=== PATIENT | male | born 1935 | race Caucasian/White ===

== ENCOUNTER 2017-02-11 09:00 | Emergency (ER) | payer MEDICARE, BC ==
[~2017-02-11] VITALS: Ht 182.9 cm; Wt 97.1 kg
--- NOTE | 2017-02-11 09:07 | NUR ---
BIBRA FROM HOME FOR EVAL-- SP FALL THIS MORNING, NO KO. PATIENT IS AAO4. APPEARS IN NO APPARENT DISTRESS,. RESPIRATION EVEN AND UNLABORED. PATIENT NOTED WITH OPEN WOUND ON FORHEAD, NOSE BRIDGE AND BUE. MINIMAL BLEEDING NOTED. PRESSURE APPLIED. PT IS AFEBRILE. NO OBVIOUS SIGN OF FRACTURE NOTED. WILL CONT TO MONITOR
[2017-02-11] MEDS ORDERED: TDAP [DIPH/PERTUSSIS/TET] 0.5 ML VIAL IM ONE ×2 (09:10→09:30)
--- NOTE | 2017-02-11 09:10 | NUR ---
MD ELLINGTON AT BS
--- NOTE | 2017-02-11 09:33 | NUR ---
pt was taken to ct
--- NOTE | 2017-02-11 09:54 | NUR ---
Pt is back to ct
--- NOTE | 2017-02-11 10:14 | NUR ---
patient complaint of neck pain, 6/10, non radiating. Md Bains aware. Cervicall collar will be placed
[2017-02-11] MEDS ORDERED: GLIM4TAB2 PO (10:19)
[2017-02-11] MEDS ORDERED: SERT50TA PO (10:19)
[2017-02-11] MEDS ORDERED: CARV12.52 PO (10:19)
[2017-02-11] MEDS ORDERED: LOVA20TA2 PO (10:19)
[2017-02-11] MEDS ORDERED: LINA5TAB PO (10:19)
[2017-02-11] MEDS ORDERED: AMLO10TA2 PO (10:19)
--- NOTE | 2017-02-11 10:21 | NUR ---
pt is back to ct--accompanied by MD Ewing
[2017-02-11 11:25] LABS: BASOPHILS # (AUTO) 0.4 /CMM (0.0-0.2); BASOPHILS % (AUTO) 2.5 % (0.0-2.0); EOSINOPHILS # (AUTO) 0.2 /CMM (0.0-0.7); EOSINOPHILS % (AUTO) 1.2 % (0.0-6.0); HEMATOCRIT 43 % (39-51); HEMOGLOBIN 14.7 g/dL (13.5-17.5); LYMPHOCYTES # (AUTO) 0.8 /CMM (0.8-4.8); LYMPHOCYTES % (AUTO) 5.1 % (20.0-44.0); MEAN CORPUSCULAR HEMOGLOBIN 31 PG (26.0-33.0); MEAN CORPUSCULAR HGB CONC 34 g/dl (31.0-36.0); MEAN CORPUSCULAR VOLUME 90 fL (80-96); MONOCYTES # (AUTO) 0.7 /CMM (0.1-1.30); MONOCYTES % (AUTO) 4.5 % (2.0-12.0); NEUTROPHILS # (AUTO) 13.4 /CMM (1.8-8.9); NEUTROPHILS % (AUTO) 86.7 % (43.0-81.0); PLATELET COUNT (AUTO) 179 /CMM (150-450); RDW COEFFICIENT OF VARIATION 13.6 (11.5-15.0); RED BLOOD CELL COUNT(AUTO) 4.75 MIL/uL (4.5-6.0); WHITE BLOOD COUNT (AUTO) 15.5 K/uL (4.3-11.0)
--- NOTE | 2017-02-11 11:25 | NUR ---
CALLED TRANSPORT PLACED ON WILL-CALL
[2017-02-11 11:35] LABS: CALCIUM, SERUM 8.6 mg/dL (8.5-10.1); CARBON DIOXIDE 23 mmol/L (21-32); CHLORIDE 103 mmol/L (98-107); GLUCOSE 213 mg/dL (74-106); POTASSIUM 4.6 mmol/L (3.5-5.1); SODIUM SERUM 135 mmol/L (136-145); UREA NITROGEN, BLOOD 51 mg/dL (7-18)
[2017-02-11 11:38] LABS: INR 1.08 (0.87-1.13); PROTHROMBIN TIME 11.2 SECS (9.5-12.7)
[2017-02-11 11:41] LABS: ALANINE AMINOTRANSFERASE 26 U/L (12-78); ALBUMIN 3.6 g/dL (3.4-5.0); ALKALINE PHOSPHATASE 92 U/L (46-116); ASPARTATE AMINOTRANSFERASE 23 U/L (15-37); BILIRUBIN,DIRECT 0.2 mg/dL (0.0-0.2); BILIRUBIN,TOTAL 1.1 mg/dL (0.2-1.0); TOTAL PROTEIN, SERUM 7.2 g/dL (6.4-8.2)
[2017-02-11 11:43] LABS: TROPONIN I < 0.017 ng/mL (0.00-0.056)
[2017-02-11 12:25] LABS: EOSINOPHILS % (MANUAL) 2 % (0-4); LYMPHOCYTES % (MANUAL) 4 % (16-48); MONOCYTES % (MANUAL) 2 % (0-11.0); NEUTROPHILS % (MANUAL) 90 (42-76); REACTIVE LYMPHOCYTES 2 % (0-0)
--- NOTE | 2017-02-11 13:29 | NUR ---
ON THE PHONE WITH BOY FROM [facility]. ETA OF 1HR WAS GIVEN.
--- NOTE | 2017-02-11 13:46 | NUR ---
report given to rn from [facility] for continuity of care
--- NOTE | 2017-02-11 14:50 | NUR ---
patient transported to [facility]. C spine precaution observed
[2017-02-11 14:53] VITALS: BP 155/80
== END 2017-02-11 14:55 | disposition short-term general hospital (02) ==
LOC: ER 09:04
DX: S12.000A Unspecified displaced fracture of first cervical vertebra, initial encounter for closed fracture (principal); S12.120A Other displaced dens fracture, initial encounter for closed fracture; S02.2XXA Fracture of nasal bones, initial encounter for closed fracture; S01.112A Laceration without foreign body of left eyelid and periocular area, initial encounter; S00.81XA Abrasion of other part of head, initial encounter; E11.9 Type 2 diabetes mellitus without complications; Z23 Encounter for immunization; W01.0XXA Fall on same level from slipping, tripping and stumbling without subsequent striking against object, initial encounter; Y92.89 Other specified places as the place of occurrence of the external cause; Y93.89 Activity, other specified; Y99.8 Other external cause status
CPT/HCPCS: 12013; 36415; 70450; 70486; 71010; 72125; 73110; 73130; 80048; 80076; 84484; 85025; 85730; 86850; 90471; 90715; 99291; A4606; A6402; A6403; L0172; Z7610

== ENCOUNTER 2018-10-31 21:32 | Emergency (ER) | payer MEDICARE, BC ==
[~2018-10-31] VITALS: Ht 175.3 cm; Wt 93.0 kg
[~2018-10-31 21:32] MED LIST: AMLO10TA7 PO; CARV12.52 PO; GLIM4TAB2 PO; LINA5TAB PO; LOVA20TA2 PO; SERT50TA PO
[2018-10-31 21:59] VITALS: BP 104/67
--- NOTE | 2018-10-31 21:59 | NUR ---
PT AOX4, AFEBRILE W/ RESP EVEN & UNLABORED, DENIES ANY PAIN, NO PARRISH, NO DIZZINESS, NO BLURRED VISIONS. PT SENT BACK TO WR W/ FAMILY. ER SATURATED, NO AVAILABLE BED AT THIS TIME.
--- NOTE | 2018-10-31 22:29 | NUR ---
PT & FAMILY HAS DECIDED NO LONGER WISHES TO WAIT TO SEE MD FOR FURTHER EVALUATION. PT SON STATES PT HAS AN APPT W/ PCP TOMORROW AND WILL JUST FOLLOW UP W/ PCP IN MORNING. PT AOX4, RESP EVEN & UNLABORED, AMBULATORY W/ STEADY GAIT W/ NAD NOTED. PT LWBS.
== END 2018-10-31 22:31 | disposition left against medical advice (07) ==
LOC: ER 21:32
DX: Z53.21 Procedure and treatment not carried out due to patient leaving prior to being seen by health care provider (principal); I10 Essential (primary) hypertension; Z85.828 Personal history of other malignant neoplasm of skin; E11.9 Type 2 diabetes mellitus without complications

== ENCOUNTER 2018-12-22 15:53 | Emergency (ER) | payer MEDICARE, BC ==
[~2018-12-22] VITALS: Ht 175.3 cm; Wt 97.1 kg
--- NOTE | 2018-12-22 15:56 | NUR ---
MATT, FROM HOME, FELL WHILE GETTING OUT OF HIS CAR, HIT HIS NOSE ON THE PAVEMENT WITH ABRASION, NOTED WITH EPISTAXIS. TO ER BED 1, HOOKED TO MONITOR, AWAITING MD LOOMIS.
--- NOTE | 2018-12-22 15:57 | NUR ---
DR SWANN AT BEDSIDE
--- NOTE | 2018-12-22 15:58 | NUR ---
PRESSURE APPLIED AT NOSE AREA, COLD PACK PROVIDED
[2018-12-22] MEDS ORDERED: TDAP [DIPH/PERTUSSIS/TET] 0.5 ML VIAL IM ONE ×2 (16:00→16:08)
[2018-12-22] MEDS ORDERED: IBUPROFEN 600 MG TABLET PO ONE ×2 (16:00→16:08)
--- NOTE | 2018-12-22 16:15 | NUR ---
WHEELED OUT VIA [facility] FOR CT SCAN.
[2018-12-22 17:02] VITALS: BP 142/80
== END 2018-12-22 17:51 | disposition home or self-care (01) ==
LOC: ER 15:55
DX: S02.2XXA Fracture of nasal bones, initial encounter for closed fracture (principal); S12.120A Other displaced dens fracture, initial encounter for closed fracture; R04.0 Epistaxis; I12.9 Hypertensive chronic kidney disease with stage 1 through stage 4 chronic kidney disease, or unspecified chronic kidney disease; E11.22 Type 2 diabetes mellitus with diabetic chronic kidney disease; N18.9 Chronic kidney disease, unspecified; E78.00 Pure hypercholesterolemia, unspecified; Z79.82 Long term (current) use of aspirin; Z85.828 Personal history of other malignant neoplasm of skin; W18.09XA Striking against other object with subsequent fall, initial encounter; Y93.89 Activity, other specified; Y92.89 Other specified places as the place of occurrence of the external cause; Y99.8 Other external cause status
CPT/HCPCS: 70450; 70486; 72125; 90471; 90715; 99284; A6402; L0172

== ENCOUNTER 2019-02-21 16:12 | Emergency (ER) | payer MEDICARE, BC ==
[~2019-02-21] VITALS: Ht 177.8 cm; Wt 92.1 kg
[2019-02-21 16:21] VITALS: BP 171/81
== END 2019-02-21 17:49 | disposition home or self-care (01) ==
LOC: ER 16:13
DX: S16.1XXA Strain of muscle, fascia and tendon at neck level, initial encounter (principal); I12.9 Hypertensive chronic kidney disease with stage 1 through stage 4 chronic kidney disease, or unspecified chronic kidney disease; E08.22 Diabetes mellitus due to underlying condition with diabetic chronic kidney disease; N18.9 Chronic kidney disease, unspecified; Z85.828 Personal history of other malignant neoplasm of skin; Z79.899 Other long term (current) drug therapy; V49.59XA Passenger injured in collision with other motor vehicles in traffic accident, initial encounter; Y93.89 Activity, other specified; Y92.413 State road as the place of occurrence of the external cause; Y99.8 Other external cause status
CPT/HCPCS: 72125-TC

== ENCOUNTER 2019-08-26 05:29 | Inpatient (IN) | payer MEDICARE, BC ==
[~2019-08-26] VITALS: Ht 177.8 cm; Wt 93.0 kg
[~2019-08-26 05:29] MED LIST changes: -GLIM4TAB2 PO; +GLIM4TAB37 PO
--- NOTE | 2019-08-26 05:41 | NUR ---
SAI C/O DIARRHEA X1 DAY -ABDOMINAL PAIN, -DYSURIA, -HEMATURIA, -FEVER TO ER BED 2 AWAITING [facility] EVAL
--- NOTE | 2019-08-26 05:52 | NUR ---
PER SON, PT TOOK TWO PACKETS OF BENEFIBER LAST NIGTH
[2019-08-26 06:29] LABS: BASOPHILS % (AUTO) 0.4 % (0.0-2.0); EOSINOPHILS % (AUTO) 0.8 % (0.0-6.0); HEMATOCRIT 39 % (39-51); HEMOGLOBIN 12.9 g/dL (13.5-17.5); LYMPHOCYTES # (AUTO) 0.6 /CMM (0.8-4.8); MEAN CORPUSCULAR HGB CONC 33 g/dl (31.0-36.0); MEAN CORPUSCULAR VOLUME 94 fL (80-96); MONOCYTES # (AUTO) 0.8 /CMM (0.1-1.30); MONOCYTES % (AUTO) 6.9 % (2.0-12.0); NEUTROPHILS # (AUTO) 10.2 /CMM (1.8-8.9); NEUTROPHILS % (AUTO) 86.9 % (43.0-81.0); PLATELET COUNT (AUTO) 161 /CMM (150-450); RED BLOOD CELL COUNT(AUTO) 4.13 MIL/uL (4.5-6.0); WHITE BLOOD COUNT (AUTO) 11.7 K/uL (4.3-11.0)
[2019-08-26] MEDS ORDERED: IV NS 0.9% 1,000 ML BAG IV ONE ×2 (06:30→09:00)
[2019-08-26 06:45] LABS: ALANINE AMINOTRANSFERASE 31 U/L (12-78); ALBUMIN 3.4 g/dL (3.4-5.0); ALKALINE PHOSPHATASE 96 U/L (46-116); ASPARTATE AMINOTRANSFERASE 20 U/L (15-37); BILIRUBIN,DIRECT 0.2 mg/dL (0.0-0.2); BILIRUBIN,TOTAL 1.1 mg/dL (0.2-1.0); CALCIUM, SERUM 8.1 mg/dL (8.5-10.1); CARBON DIOXIDE 21 mmol/L (21-32); CHLORIDE 103 mmol/L (98-107); CREATININE 2.3 mg/dL (0.6-1.3); GLUCOSE 209 mg/dL (74-106); LIPASE 112 U/L (73-393); POTASSIUM 4.7 mmol/L (3.5-5.1); SODIUM SERUM 135 mmol/L (136-145); TOTAL PROTEIN, SERUM 6.8 g/dL (6.4-8.2)
[2019-08-26 06:54] LABS: UREA NITROGEN, BLOOD 76 mg/dL (7-18)
[2019-08-26 07:02] LABS: APPEARANCE,URINE CLEAR (CLEAR); BILIRUBIN,URINE NEGATIVE (NEGATIVE); BLOOD, URINE TRACE-INTA Ery/uL (NEGATIVE); COLOR,URINE YELLOW (YELLOW); KETONES,URINE NEGATIVE (NEGATIVE); LEUKOCYTE ESTERASE ,URINE NEGATIVE (NEGATIVE); NITRITE, URINE NEGATIVE (NEGATIVE); PH,URINE 5.5 (5.0-8.0); PROTEIN,URINE NEGATIVE (NEGATIVE); UGLUCOSE 250 MG/DL mg/dL (NEGATIVE); UROBILINOGEN,URINE 0.2 EU/dL (0.2)
[2019-08-26 07:09] LABS: BACTERIA,URINE None seen /HPF (None Seen); RBC,URINE 0-1 /HPF (0-2); SQUAMOUS EPITHELIAL CELL,UR Rare /HPF (None Seen); WBC,URINE 0-2 /HPF (0-3)
--- NOTE | 2019-08-26 07:49 | NUR ---
Patient is resting comfortably in bed with eyes closed. Easily aroused. VSS
--- NOTE | 2019-08-26 07:51 | NUR ---
PAGED DR VALORIE DUONG OUTPATIENT DIETITIAN
--- NOTE | 2019-08-26 08:07 | NUR ---
room 200
[2019-08-26] MEDS ORDERED: VIT1CAPS9 PO (08:09)
[2019-08-26] MEDS ORDERED: ASPI-1169 PO (08:09)
[2019-08-26] MEDS ORDERED: MULT-1168 PO (08:09)
[2019-08-26] MEDS ORDERED: LOSA50TA39 PO (08:09)
[2019-08-26] MEDS ORDERED: FURO20TA4 PO (08:09)
--- NOTE | 2019-08-26 08:09 | NUR ---
report given to Kiet WILLIS for rossana.
--- NOTE | 2019-08-26 08:33 | NUR ---
PATIENT TRANSFERRED TO ROOM 200-1, IN STABLE CONDITION. PATIENT AMBULATORY WITH STEADY GAIT. NEEDS ATTENDED.
[2019-08-26 08:45] VITALS: BP 125/71
--- NOTE | 2019-08-26 08:48 | NUR ---
MS DESK OFFICER NOTE PATIENT ARRIVED BY CESARRNEY AND IS AMBULATORY TO BED. PATIENT IN NO ACUTE DISTRESS. NO SOB NOTED. PATIENT BREATHING IS EVEN AND UNLABORED. PATIENT IN NO PAIN AT THIS TIME. PATIENT VITAL SIGNS WNL. PATIENT BED IS LOCKED AND IN LOWEST POSITION. CALL LIGHT WITHIN REACH. FAMILY AT THE BEDSIDE. BED ALARM IS ON. HOB IS ELEVATED. WILL CONTINUE TO MONITOR. DR. EUGENE MADE AWARE, AWAITING ADMITTING ORDERS.
[2019-08-26 10:00] VITALS: BP 125/75
[2019-08-26] MEDS ORDERED: Z GUARD REMEDY 2 OZ OINT TP PRN (10:00)
[2019-08-26] MEDS ORDERED: ENOXAPARIN SODIUM 40 MG/0.4 ML DISP.SYRIN SQ SCH (10:00)
[2019-08-26] MEDS ORDERED: ONDANSETRON HCL/PF 4 MG/2 ML VIAL IVP PRN (10:00)
[2019-08-26] MEDS ORDERED: DEXTROSE 50%-WATER 50 ML DISP.SYRIN IV PRN (10:00)
[2019-08-26] MEDS ORDERED: MAGNESIUM HYDROXIDE 30 ML UDC PO PRN (10:00)
[2019-08-26] MEDS ORDERED: LOVASTATIN (NON FORMULARY) 20 MG TABLET PO SCH (10:00)
[2019-08-26] MEDS ORDERED: HYDROCODONE/APAP 5/325MG 1 EACH TABLET PO PRN (10:00)
[2019-08-26] MEDS ORDERED: ACETAMINOPHEN 325 MG TABLET PO PRN (10:00)
[2019-08-26] MEDS ORDERED: ZOLPIDEM TARTRATE 5 MG TABLET PO PRN (10:00)
[2019-08-26] MEDS: IV D5/0.45 NACL 1,000 ML IV PRN (10:38)
[2019-08-26] MEDS: ENOXAPARIN SODIUM 30 MG/0.3 ML DISP.SYRIN SQ SCH (10:58)
[2019-08-26] MEDS: ASPIRIN 81 MG TAB.CHEW PO SCH (10:58)
[2019-08-26] MEDS: LINAGLIPTIN 5 MG TABLET PO SCH (10:59)
[2019-08-26] MEDS: CARVEDILOL 12.5 MG TABLET PO SCH ×2 (10:59→17:12)
[2019-08-26] MEDS: GLIMEPIRIDE 4 MG TABLET PO SCH (11:43)
[2019-08-26] MEDS: BLOOD SUGAR DIAGNOSTIC 1 EACH STRIP IN SCH ×3 (11:51→21:15)
[2019-08-26] MEDS: INSULIN REGULAR, HUMAN 100 UNIT/ML 3 ML VIAL SQ PRN ×2 (11:56→21:20)
[2019-08-26 16:00] VITALS: BP 139/66
--- NOTE | 2019-08-26 18:17 | NUR ---
MS RN CLOSING NOTE PATIENT IN BED RESTING COMFORTABLY, PATIENT IN NO ACUTE DISTRESS. NO SOB NOTED. PATIENT BREATHING IS EVEN AND UNLABORED. PATIENT IN NO PAIN AT THIS TIME. IV INTACT. PATIENT SON AT THE BEDSIDE. PATIENT WAS UNABLE TO POOP DURING MY SHIFT AFTER MULTIPLE ATTEMPTS TO POOP. UNABLE TO GRAB STOOL CULTURE WILL ENDORSE TO NITROGLYCERIN NITRATOR OPERATOR BATCH. PATIENT BED IS LOCKED AND IN LOWEST POSITION. CALL LIGHT WITHIN REACH. BED ALARM IS ON. HOB IS ELEVATED. WILL ENDORSE CARE TO PM SHIFT FOR TWYLA.
--- NOTE | 2019-08-26 19:10 | NUR ---
MS/RN OPENING NOTES PT RECEIVED AWAKE, FAMILY MEMBER AT BEDSIDE. PT IS A/OX3. ON ROOM AIR, BREATHING EVEN AND UNLABORED. IN NO ACUTE DISTRESS. DENIES SOB AND PAIN AT THIS TIME. IV TO RAC PATENT AND INTACT, IVF RUNNING ORDERED. HOB ELEVATED 30 DEGREES, BILAT. UPPER SIDE RAILS IN PLACE. BED IN LOW/LOCKED POSITION WITH CALL LIGHT IN REACH. ASSISTED TO RESTROOM WITH NO SUCCESS TO HAVE BM. STILL NEED TO COLLECT STOOL SPECIMEN. WILL CONTINUE TO MONITOR.
[2019-08-26 20:00] VITALS: BP 125/56
[2019-08-26 20:25] VITALS: BP 125/56
--- NOTE | 2019-08-26 21:20 | NUR ---
BGL - 178. Pt refused insulin per sliding scale. Does not want snacks for tonight either.
[2019-08-26] MEDS ORDERED: ATORVASTATIN 10 MG TABLET PO SCH (22:00)
[2019-08-27] MEDS: IV D5/0.45 NACL 1,000 ML IV PRN (03:06)
[2019-08-27 06:17] LABS: BASOPHILS % (AUTO) 0.3 % (0.0-2.0); EOSINOPHILS % (AUTO) 2.5 % (0.0-6.0); HEMATOCRIT 40 % (39-51); HEMOGLOBIN 13.4 g/dL (13.5-17.5); LYMPHOCYTES % (AUTO) 14.5 % (20.0-44.0); MEAN CORPUSCULAR HGB CONC 34 g/dl (31.0-36.0); MEAN CORPUSCULAR VOLUME 94 fL (80-96); MONOCYTES % (AUTO) 12.1 % (2.0-12.0); NEUTROPHILS # (AUTO) 5.7 /CMM (1.8-8.9); NEUTROPHILS % (AUTO) 70.6 % (43.0-81.0); PLATELET COUNT (AUTO) 177 /CMM (150-450); RED BLOOD CELL COUNT(AUTO) 4.26 MIL/uL (4.5-6.0); WHITE BLOOD COUNT (AUTO) 8.1 K/uL (4.3-11.0)
[2019-08-27 06:18] LABS: LYMPHOCYTES # (AUTO) 1.2 /CMM (0.8-4.8)
[2019-08-27 06:44] LABS: CALCIUM, SERUM 8.3 mg/dL (8.5-10.1); CARBON DIOXIDE 22 mmol/L (21-32); CHLORIDE 109 mmol/L (98-107); CREATININE 1.9 mg/dL (0.6-1.3); GLUCOSE 157 mg/dL (74-106); MAGNESIUM 2.4 mg/dL (1.8-2.4); PHOSPHORUS 2.6 mg/dL (2.5-4.9); SODIUM SERUM 142 mmol/L (136-145); UREA NITROGEN, BLOOD 52 mg/dL (7-18)
[2019-08-27 06:57] LABS: CHOLESTEROL 114 mg/dL (<200); HDL CHOLESTEROL 47 mg/dL (40-60); LDL 61 mg/dL (0-99); THYROID STIMULATING HORMONE 5.178 uIU/mL (0.358-3.74); TRIGLYCERIDES 78 mg/dL (30-150)
--- NOTE | 2019-08-27 07:04 | NUR ---
MS/RN CLOSING NOTES PT AWAKE, RESTING COMFORTABLY IN BED. A/OX3. ON ROOM AIR, BREATHING EVEN AND UNLABORED. IN NO ACUTE DISTRESS. DENIES SOB AND PAIN AT THIS TIME. IV TO RAC PATENT AND INTACT RUNNING IVF ORDERED. SLEPT WELL DURING THE SHIFT. NO EPISODES OF DIARRHEA. AMBULATES WITH ASSIST. BED IN LOW/LOCKED POSITION WITH CALL LIGHT IN REACH. HOB ELEVATED AND BILAT. UPPER SIDE RAILS UPX2. BED ALARM ON FOR SAFETY. WILL ENDORSE TO DAY SHIFT RN TWYLA.
[2019-08-27] MEDS: INSULIN REGULAR, HUMAN 100 UNIT/ML 3 ML VIAL SQ PRN (07:44)
[2019-08-27] MEDS: BLOOD SUGAR DIAGNOSTIC 1 EACH STRIP IN SCH (07:45)
[2019-08-27 08:00] VITALS: BP 154/75
--- NOTE | 2019-08-27 08:00 | NUR ---
MS RN OPENING NOTES Received Patient awake and resting in bed. A/O x 4. Patient in stable condition with no acute distress. Breathing even and unlabored on room air with no respiratory distress. Denies pain at this time. 18g PIV on RAC clean, intact, patent and flushing well with D51/2 NS infusing at 75ml/hr. Safety precautions in place. Bed locked and set to lowest position with side rails x 2 up. All needs rendered at this time. Call light within reach. Will continue to monitor.
[2019-08-27] MEDS: ASPIRIN 81 MG TAB.CHEW PO SCH (08:32)
[2019-08-27] MEDS: GLIMEPIRIDE 4 MG TABLET PO SCH (08:32)
[2019-08-27 08:33] VITALS: BP 184/75
[2019-08-27] MEDS: LINAGLIPTIN 5 MG TABLET PO SCH (08:33)
[2019-08-27] MEDS: CARVEDILOL 12.5 MG TABLET PO SCH (08:33)
[2019-08-27] MEDS: ENOXAPARIN SODIUM 30 MG/0.3 ML DISP.SYRIN SQ SCH (10:52)
--- NOTE | 2019-08-27 11:44 | NUR ---
Visited pt today. Son at bedside during the visit. Per son, no more diarrhea after admission. Pt states having an appetite. Per son, pt lives with another son and pt has long-term caregiver during the weekdays. Per pt, pt drinks diet coke 64 oz per day. Provided diet education to pt/son. Encourage pt to cut down on diet coke and drink more water. Pt/son verbalized understanding. Noted A1C still pending. Noted MD order to discharge pt back to home today.
--- NOTE | 2019-08-27 11:53 | NUR ---
MS CORRECTIONAL COUNSELOR NOTES Patient discharge for home at this time. Patient in stable condition. VS stable with no acute distress. Breathing even and unlabored on room air with no respiratory distress. Denies pain. Noted skin discolorations, otherwise skin intact. Patient refused skin assessment pictures. Medication reconciliation and discharge orders reviewed and explained to Patient, son and caregiver. Patient, son and caregiver verbalized understanding. All belongings with Patient. Patient will follow up with PCP in 1 week. Escorted Patient to the lobby for safety. Patient picked up by son and caregiver.
== END 2019-08-27 12:00 | disposition home or self-care (01) | DRG 392 ==
LOC: ER 05:30 → MEDSG2 08:10
PROVIDERS: ATTEND Internal Medicine
DX: A08.4 Viral intestinal infection, unspecified (principal); I12.9 Hypertensive chronic kidney disease with stage 1 through stage 4 chronic kidney disease, or unspecified chronic kidney disease; N18.9 Chronic kidney disease, unspecified; E83.51 Hypocalcemia; E86.9 Volume depletion, unspecified; E11.22 Type 2 diabetes mellitus with diabetic chronic kidney disease; E78.5 Hyperlipidemia, unspecified; D72.829 Elevated white blood cell count, unspecified; Z85.72 Personal history of non-Hodgkin lymphomas; Z85.828 Personal history of other malignant neoplasm of skin
CPT/HCPCS: 36415; 80048-TC; 80061-TC; 80076-TC; 81000-TC; 82962-TC; 83690-TC; 83735-TC; 84100-TC; 84443-TC; 85025-TC; 87081-TC; G0378; J1650; J1815; J3490; J7030

== ENCOUNTER 2020-06-07 06:20 | Inpatient (IN) | payer MEDICARE, BC ==
[2020-06-07] VITALS (17 sets, daily range): BP systolic 95–147; BP diastolic 55–92
[~2020-06-07] VITALS: Ht 177.8 cm; Wt 84.8 kg
[~2020-06-07 06:20] MED LIST changes: +ASPI-1169 PO; +MULT-1168 PO; -SERT50TA PO; +VIT1CAPS9 PO
--- NOTE | 2020-06-07 06:25 | NUR ---
PT BIBEMS C/O SYNCOPE AND LOW BLOODPRESSURE. NOTED DRY RED BLOOD AROUND PT'S MOUTH. PT AAOX4, VSS, RESPIRATIONS EVEN AND UNLABORED ON RA W/ NAD NOTED. PT CONNECTED TO THE PREASSEMBLER PRINTED CIRCUIT BOARD AND POX
[2020-06-07] MEDS ORDERED: ONDANSETRON HCL/PF 4 MG/2 ML VIAL IVP ONE (06:30)
[2020-06-07] MEDS ORDERED: PANTOPRAZOLE 80 MG in IV NS 0.9% 500 ML IV ONE (06:30)
[2020-06-07] MEDS ORDERED: OCTREOTIDE 50 MCG/ML AMPUL IV ONE (06:30)
[2020-06-07] MEDS ORDERED: OCTREOTIDE 1,250 MCG in IV NS 0.9% 250 ML IV ONE (06:30)
[2020-06-07] MEDS ORDERED: PANTOPRAZOLE 80 MG in IV NS 0.9% 100 ML IV ONE (06:30)
[2020-06-07] MEDS ORDERED: IV NS 0.9% 1,000 ML BAG IV ONE (06:30)
[2020-06-07] MEDS ORDERED: ONDANSETRON HCL/PF 4 MG/2 ML VIAL ONE (06:34)
[2020-06-07] MEDS ORDERED: PANTOPRAZOLE 40 MG VIAL ONE (06:34)
[2020-06-07] MEDS ORDERED: OCTREOTIDE 500 MCG/ML VIAL ONE (06:35)
[2020-06-07] MEDS ORDERED: OCTREOTIDE 100 MCG/ML VIAL ONE (06:35)
[2020-06-07 06:48] LABS: BASOPHILS % (AUTO) 0.3 % (0.0-2.0); EOSINOPHILS % (AUTO) 1.4 % (0.0-6.0); LYMPHOCYTES % (AUTO) 11.1 % (20.0-44.0); MEAN CORPUSCULAR HGB CONC 32 g/dl (31.0-36.0); MEAN CORPUSCULAR VOLUME 87 fL (80-96); MONOCYTES # (AUTO) 1.1 /CMM (0.1-1.30); MONOCYTES % (AUTO) 12.2 % (2.0-12.0); NEUTROPHILS # (AUTO) 6.9 /CMM (1.8-8.9); PLATELET COUNT (AUTO) 172 /CMM (150-450); WHITE BLOOD COUNT (AUTO) 9.2 K/uL (4.3-11.0)
--- NOTE | 2020-06-07 06:50 | NUR ---
PT TAKEN TO RADIOLOGY FOR CT
--- NOTE | 2020-06-07 07:00 | NUR ---
PT BACK FROM CT
[2020-06-07 07:09] LABS: ALANINE AMINOTRANSFERASE 10 U/L (12-78); ALBUMIN 1.9 g/dL (3.4-5.0); ALKALINE PHOSPHATASE 57 U/L (46-116); ASPARTATE AMINOTRANSFERASE 9 U/L (15-37); BILIRUBIN,DIRECT 0.1 mg/dL (0.0-0.2); BILIRUBIN,TOTAL 0.4 mg/dL (0.2-1.0); CALCIUM, SERUM 7.4 mg/dL (8.5-10.1); CARBON DIOXIDE 17 mmol/L (21-32); CHLORIDE 107 mmol/L (98-107); CREATININE 2.3 mg/dL (0.6-1.3); GLUCOSE 309 mg/dL (74-106); LIPASE 43 U/L (73-393); POTASSIUM 5.1 mmol/L (3.5-5.1); SODIUM SERUM 136 mmol/L (136-145); TOTAL PROTEIN, SERUM 4.1 g/dL (6.4-8.2)
[2020-06-07 07:15] LABS: HEMATOCRIT 17 % (39-51); HEMOGLOBIN 5.3 g/dL (13.5-17.5); RED BLOOD CELL COUNT(AUTO) 1.91 MIL/uL (4.5-6.0)
[2020-06-07 07:20] LABS: UREA NITROGEN, BLOOD 94 mg/dL (7-18)
--- NOTE | 2020-06-07 08:24 | NUR ---
[facility] PAGED
[2020-06-07] MEDS ORDERED: FURO-145 PO (08:32)
--- NOTE | 2020-06-07 08:33 | NUR ---
CALLED HOUSE SUP FOR ICU BED.
--- NOTE | 2020-06-07 08:45 | NUR ---
BLOOD TRANSFUSION STARTED. V/S STABLE. KEPT RESTED AND COMFORTABLE.
[2020-06-07] MEDS ORDERED: MAG HYDROX/AL HYDROX/SIMETH 30 ML UDC PO PRN (09:30)
[2020-06-07] MEDS ORDERED: DEXTROSE 50%-WATER 50 ML DISP.SYRIN IV PRN (09:30)
[2020-06-07] MEDS ORDERED: MAGNESIUM HYDROXIDE 30 ML UDC PO PRN (09:30)
[2020-06-07] MEDS ORDERED: Z GUARD REMEDY 2 OZ OINT TP PRN (09:30)
[2020-06-07] MEDS ORDERED: ONDANSETRON HCL/PF 4 MG/2 ML VIAL IVP PRN (09:30)
[2020-06-07] MEDS ORDERED: ACETAMINOPHEN 325 MG TABLET PO PRN (09:30)
[2020-06-07] MEDS ORDERED: ZOLPIDEM TARTRATE 5 MG TABLET PO PRN (09:30)
[2020-06-07 09:54] LABS: HEMOGLOBIN 6.8 g/dL (13.5-17.5)
[2020-06-07 10:04] LABS: LYMPHOCYTES % (MANUAL) 11 % (16-48); MONOCYTES % (MANUAL) 7 % (0-11.0); NEUTROPHILS % (MANUAL) 82 (42-76)
--- NOTE | 2020-06-07 10:14 | NUR ---
REPORT GIVEN TO ALBA CORNELIUS FOR TWYLA. WITH ONGOING BLOOD TRANSFUSION AND IVF.
--- NOTE | 2020-06-07 10:30 | NUR ---
RN NOTES RECEIVED PATIENT FROM ER, ALERT AND ORIENTEDX3-4. ABLE TO RESPOND APPROPRIATELY. ABLE TO MAKE NEEDS KNOWN. ON ROOM AIR SATING FINE AT 97-99%. NO SIGN OF SHORTNESS OF BREATH NOTED AT THIS TIME. PATIENT TRANSFERRED TO BED, SITUATED AND MADE COMFORTABLE. LEADS ATTACHED FOR THE MONITOR. SKIN ASSESSMENT DONE, SKIN NOTED TO BE INTACT. PATIENT ORIENTED TO FLOOR AND USE OF CALL LIGHT. PLAN OF CARE DISCUSSED. NOTED WITH ONGOING OCREOTIDE AND PROTONIX DRIP-WILL FOLLOW UP WITH MD IF TO BE CONTINUED. PATIENT ENCOURAGE TO CALL FOR HELP AND ASSISTANCE. SAFETY MEASURES PUT IN PLACE. WILL CONTINUE TO MONITOR PATIENT ACCORDINGLY
--- NOTE | 2020-06-07 11:00 | NUR ---
RN NOTES DR. CORTES WITH ORDER TO DISCONTINUE PROTONIX DRIP.ORDER NOTED AND CARRIED OUT
[2020-06-07] MEDS ORDERED: OCTREOTIDE 1,250 MCG in IV NS 0.9% 247.5 ML IV PRN (11:30)
--- NOTE | 2020-06-07 12:00 | NUR ---
rn notes insulin to cover not given due to patien ton npo status
[2020-06-07 12:03] LABS: THYROID STIMULATING HORMONE 2.025 uIU/mL (0.358-3.74)
[2020-06-07] MEDS: BLOOD SUGAR DIAGNOSTIC 1 EACH STRIP VI SCH ×3 (13:05→21:54)
[2020-06-07] MEDS: IV D5/0.45 NACL 1,000 ML IV PRN (16:42)
[2020-06-07] MEDS: PANTOPRAZOLE 40 MG VIAL IV SCH (17:23)
[2020-06-07] MEDS: INSULIN REGULAR, HUMAN 100 UNIT/ML 3 ML VIAL SQ PRN ×2 (17:31→21:59)
--- NOTE | 2020-06-07 18:30 | NUR ---
RN NOTES PATIENT WITH NO SIGNIFICANT CHANGES WITHIN THE SHIFT. NOT ON ANY FORM OF DISTRESS. ALL NURSING NEEDS ATTENDED AND MET. S/P 2 BAGS OF PRBC TRANSFUSED. SAFETY MEASURES IN PLACE. CALL LIGHT WITHIN REACH.
--- NOTE | 2020-06-07 19:00 | NUR ---
ASSEMBLER HYDRAULIC BACKHOE NOTE RECEIVED PATIENT IN BED ALERT ORIENTATED X3 VERBALLY RESPONSIVE ABLE TO MAKE NEEDS KNOWN,NPO, ON ROOM AIR O2:98% NO SOB NOT ACUTE DISTRESS NO PAIN AT THIS TIME,IV SITE IS ON RIGHT AC AND LEFT FOREARM,INTACT PATENT IV HYDRATION D5 1/2 NS RUNNING 75 CC/HR AND OCTREOTIDE RUNNING 50MCG/HR,10CC/HR CONTINENT TO BOWEL AND BLADDER,IMPALEMENT SAFETY MEASURE,CALL LIGHT WITHIN REACH,BED LOCKED IN LOW POSITION,CONTINUE TO MONITOR.
--- NOTE | 2020-06-07 21:00 | NUR ---
RN NOTE PATIENT PULLED OUT THE IV LINE ON LEFT FOREARM.
--- NOTE | 2020-06-07 21:20 | NUR ---
RN NOTE INSERT A NEW IV LINE ON LEFT FOREARM 20G WITH GOOD BLOOD RETURN,NO INFILTRATION NO SWELLING,CONTINUE TO MONITOR
--- NOTE | 2020-06-07 21:52 | NUR ---
RN NOTE CHECKED BLOOD SUGAR IS 311 INSULIN REGULAR GIVEN PER SLIDING SCALE 8 UNITS
[2020-06-08] VITALS (23 sets, daily range): BP systolic 97–147; BP diastolic 57–107
[2020-06-08 05:09] LABS: BASOPHILS # (AUTO) 0.1 /CMM (0.0-0.2); BASOPHILS % (AUTO) 0.4 % (0.0-2.0); EOSINOPHILS % (AUTO) 0.3 % (0.0-6.0); HEMATOCRIT 26 % (39-51); HEMOGLOBIN 8.5 g/dL (13.5-17.5); LYMPHOCYTES # (AUTO) 1.2 /CMM (0.8-4.8); LYMPHOCYTES % (AUTO) 7.5 % (20.0-44.0); MEAN CORPUSCULAR HGB CONC 32 g/dl (31.0-36.0); MEAN CORPUSCULAR VOLUME 85 fL (80-96); MONOCYTES % (AUTO) 12.5 % (2.0-12.0); NEUTROPHILS # (AUTO) 12.7 /CMM (1.8-8.9); NEUTROPHILS % (AUTO) 79.3 % (43.0-81.0); PLATELET COUNT (AUTO) 196 /CMM (150-450); RED BLOOD CELL COUNT(AUTO) 3.11 MIL/uL (4.5-6.0)
[2020-06-08 05:30] LABS: CALCIUM, SERUM 7.9 mg/dL (8.5-10.1); CARBON DIOXIDE 17 mmol/L (21-32); CHLORIDE 110 mmol/L (98-107); CREATININE 2.4 mg/dL (0.6-1.3); GLUCOSE 253 mg/dL (74-106); MAGNESIUM 2.6 mg/dL (1.8-2.4); PHOSPHORUS 2.5 mg/dL (2.5-4.9); POTASSIUM 4.6 mmol/L (3.5-5.1); SODIUM SERUM 141 mmol/L (136-145)
[2020-06-08 05:40] LABS: UREA NITROGEN, BLOOD 87 mg/dL (7-18)
[2020-06-08] MEDS: IV D5/0.45 NACL 1,000 ML IV PRN ×2 (06:01→22:48)
--- NOTE | 2020-06-08 06:48 | NUR ---
RN CLOSING NOTE PATIENT REMAINS ON ALERT ORIENTED X3 VERBALLY RESPONSIVE,ABLE TO MAKE NEEDS KNOWN, NPO NO SOB NOT ACUTE DISTRESS NOTED ON OXYGEN 2L/MIN VIA NASAL CANNULA, O2:98% IV SITE IS ON LEFT FOREARM AND RIGHT UPPER ARM INTACT PATENT IV HYDRATION D5 1/2NS RUNNING 75CC/HR ALSO OCTREOTIDE 50 MCG/KG/MIN 10ML/HR,KEPT CLEAN AND DRY ALL THE TIME,KEPT CALL LIGHT WITHIN REACH,SAFETY MEASURE IMPLEMENTED,ENDORSE NEXT COMING SHIFT FOR CONTINUATION OF CARE.
[2020-06-08] MEDS: OCTREOTIDE 500 MCG in IV NS 0.9% 99 ML IV SCH ×2 (07:39→17:29)
[2020-06-08] MEDS: BLOOD SUGAR DIAGNOSTIC 1 EACH STRIP VI SCH ×4 (07:40→22:24)
[2020-06-08] MEDS: INSULIN REGULAR, HUMAN 100 UNIT/ML 3 ML VIAL SQ PRN ×2 (07:51→17:51)
--- NOTE | 2020-06-08 08:30 | NUR ---
RN OPENING NOTES Received patient in bed, A/Ox3, relaxed and clam, awake at this moment, on room air SPO2 is 99%, tolerating well, no s/sx of resp distress of SOB noted. NPO status noted due possible EGD procedure for today. IV line on R FA noted, running D51/2 NS @ 75cc/hr, intact and patent, IV line on L FA noted, running Sandostatin @50 mcg/kg/min 10cc/hr, intact and patent, tolerating well. Safety measures implemented, call light in reach, urinal next to bed in reach, bed is locked in lowest position, HOB elevated, Telemonitor is working, bed alarm is on. Will continue to monitor closely.
[2020-06-08] MEDS: PANTOPRAZOLE 40 MG VIAL IV SCH ×2 (08:55→17:29)
--- NOTE | 2020-06-08 09:15 | NUR ---
R IV line is leaking, will remove and start new line
--- NOTE | 2020-06-08 09:30 | NUR ---
Received call from Matty OR nurse, patient will have EGD at 12;30, will obtain consent form
[2020-06-08 10:41] LABS: HEMOGLOBIN 7.4 g/dL (13.5-17.5)
--- NOTE | 2020-06-08 11:45 | NUR ---
Gave report to Tomás WILLIS for TWYLA
--- NOTE | 2020-06-08 11:46 | NUR ---
RECEIVED REPORT FROM BRANDT (RN) FOR TWYLA.
[2020-06-08] MEDS: *INSULIN REGULAR(HUMULIN R)HUM 100 UNIT/ML VIAL SQ PRN ×2 (11:58→22:22)
--- NOTE | 2020-06-08 13:50 | NUR ---
ESTATE ATTORNEY NOTES PT BROUGHT TO OR FOR EGD EXAM IN STABLE CONDITION.
[2020-06-08] MEDS: SOD FERRIC GLUC 125 MG in IV NS 0.9% 100 ML IV SCH (14:18)
--- NOTE | 2020-06-08 14:45 | NUR ---
WOOL WASHING MACHINE OPERATOR NOTES BACK FROM OR FOR EGD EXAM IN STABLE CONDITION.
--- NOTE | 2020-06-08 18:25 | NUR ---
CERAMIC DESIGNER CLOSING NOTES PATIENT REMAINS ON ALERT ORIENTED X3 VERBALLY RESPONSIVE, ABLE TO MAKE NEEDS KNOWN. TO RESUME SOFT DIET. NOT IN ACUTE DISTRESS NOTED, ON OXYGEN 2L/MIN VIA NASAL CANNULA, O2:98% IV SITE IS ON LEFT FOREARM AND RIGHT UPPER ARM INTACT PATENT IV HYDRATION D5 1/2NS RUNNING 75CC/HR ALSO OCTREOTIDE 50 MCG/KG/MIN 10ML/HR,KEPT CLEAN AND DRY ALL THE TIME, SAFETY PRECAUTION OBSERVED AT ALL TIMES. WILL ENDORSE TO NEXT SHIFT.
--- NOTE | 2020-06-08 20:23 | NUR ---
Met with patient at bedside. He is alert and pleasant. States he lives locally with his son in a single level home. Prior to admission, he was ambulatory and requires min assist with adl's. Has a caregiver 8hours/day 5days/week. Has no DME or homehealth reported. His pcp is Dr. Jacinto Torres [phone]. Patient want to return home once discharge. Addendum: 06/08/20 at 2022 by PATRICK RIVERA RN Amended: Links added.
[2020-06-09] VITALS (18 sets, daily range): BP systolic 90–148; BP diastolic 41–101
[2020-06-09] MEDS: OCTREOTIDE 500 MCG in IV NS 0.9% 99 ML IV SCH (03:59)
[2020-06-09 04:58] LABS: BASOPHILS % (AUTO) 0.4 % (0.0-2.0); EOSINOPHILS % (AUTO) 1.3 % (0.0-6.0); HEMATOCRIT 22 % (39-51); HEMOGLOBIN 7.2 g/dL (13.5-17.5); LYMPHOCYTES # (AUTO) 1.3 /CMM (0.8-4.8); LYMPHOCYTES % (AUTO) 10.1 % (20.0-44.0); MEAN CORPUSCULAR HGB CONC 33 g/dl (31.0-36.0); MEAN CORPUSCULAR VOLUME 84 fL (80-96); MONOCYTES % (AUTO) 15.5 % (2.0-12.0); NEUTROPHILS # (AUTO) 9.4 /CMM (1.8-8.9); NEUTROPHILS % (AUTO) 72.7 % (43.0-81.0); PLATELET COUNT (AUTO) 176 /CMM (150-450); RED BLOOD CELL COUNT(AUTO) 2.61 MIL/uL (4.5-6.0)
[2020-06-09 05:12] LABS: CALCIUM, SERUM 7.7 mg/dL (8.5-10.1); CARBON DIOXIDE 20 mmol/L (21-32); CHLORIDE 112 mmol/L (98-107); GLUCOSE 160 mg/dL (74-106); MAGNESIUM 2.3 mg/dL (1.8-2.4); PHOSPHORUS 2.4 mg/dL (2.5-4.9); POTASSIUM 4.3 mmol/L (3.5-5.1); SODIUM SERUM 141 mmol/L (136-145); UREA NITROGEN, BLOOD 64 mg/dL (7-18)
[2020-06-09 06:24] LABS: BASOPHILS % (MANUAL) 1 % (0.0-2.0); EOSINOPHILS % (MANUAL) 3 % (0-4); LYMPHOCYTES % (MANUAL) 8 % (16-48); MONOCYTES % (MANUAL) 13 % (0-11.0); NEUTROPHILS % (MANUAL) 75 (42-76)
--- NOTE | 2020-06-09 07:45 | NUR ---
ICU/RN: INITIAL NOTES,AM RECEIVED REPORT FROM NIGHT NURSE. PT ALERT, AWAKE, FOLLOWS COMMANDS. ON 2LITERS NASAL CANULA. RESTING COMFORTABLY. SINUS ON TELE, WITH FIRST DEGREE AV BLOCK. SKIN INTACT, PT TURNED AND REPOSITIONED. PIV PATENT AND INTACT, IVF INFUSING ORDERED. ALL NEEDS WILL BE ATTENDED TO, SAFETY MEASURES TAKEN, BED IN LOW POSITION, SIDE RAILS UP, CALL LIGHT WITHIN REACH. WILL CONTINUE CARE.
[2020-06-09] MEDS: BLOOD SUGAR DIAGNOSTIC 1 EACH STRIP VI SCH ×4 (07:47→22:13)
[2020-06-09] MEDS: *INSULIN REGULAR(HUMULIN R)HUM 100 UNIT/ML VIAL SQ PRN ×3 (07:50→22:15)
[2020-06-09] MEDS: PANTOPRAZOLE 40 MG VIAL IV SCH ×2 (08:07→17:37)
[2020-06-09 10:44] LABS: HEMOGLOBIN 7.4 g/dL (13.5-17.5)
[2020-06-09] MEDS ORDERED: K PHOS NEUTRAL 250 MG TABLET PO ONE (12:00)
[2020-06-09] MEDS: IV D5/0.45 NACL 1,000 ML IV PRN (12:15)
[2020-06-09] MEDS: SOD FERRIC GLUC 125 MG in IV NS 0.9% 100 ML IV SCH (14:18)
--- NOTE | 2020-06-09 14:30 | NUR ---
ICU/RN: UPDATES GIVEN TO SON OF PT. INFORMED HIM THAT PT WILL BE TRANSFERRED TO [facility], TELE ROOM. ALL NEEDS ATTENDED TO, BED BATH GIVEN. WILL CONTINUE CARE.
--- NOTE | 2020-06-09 15:50 | NUR ---
ICU/RN: PT TRANSFERRED TO 108 VIA ACLS GUIDELINES. ALL BELONGINGS TRANSFERRED WITH PT. PT ALERT, AWAKE, FOLLOW ALL COMMANDS. NO DISTRESS NOTED. SINUS ON TELE. ALL NEEDS ATTENDED TO, SAFETY MEASURES TAKEN, BED IN LOW POSITION, SIDE RAILS UP, CALL LIGHT WITHIN REACH. WILL CONTINUE CARE,
--- NOTE | 2020-06-09 16:00 | NUR ---
CHIEF OF PRODUCTION NOTES Received patient A/Ox3, relaxed and clam, awake at this moment, on room air SPO2 is 99%, tolerating well, no s/sx of resp distress of SOB noted. IV line on R FA noted, running D51/2 NS @ 75cc/hr, intact and patent. Safety measures implemented, call light in reach, urinal next to bed in reach, bed is locked in lowest position, HOB elevated, bed alarm is on. Will continue to monitor.
[2020-06-09 16:57] LABS: APPEARANCE,URINE CLEAR (CLEAR); BILIRUBIN,URINE NEGATIVE (NEGATIVE); BLOOD, URINE NEGATIVE Ery/uL (NEGATIVE); COLOR,URINE YELLOW (YELLOW); KETONES,URINE NEGATIVE (NEGATIVE); LEUKOCYTE ESTERASE ,URINE NEGATIVE (NEGATIVE); NITRITE, URINE NEGATIVE (NEGATIVE); PROTEIN,URINE NEGATIVE (NEGATIVE); UGLUCOSE 500 MG/DL mg/dL (NEGATIVE); UROBILINOGEN,URINE 0.2 EU/dL (0.2)
[2020-06-09] MEDS: INSULIN REGULAR, HUMAN 100 UNIT/ML 3 ML VIAL SQ PRN (17:56)
--- NOTE | 2020-06-09 18:39 | NUR ---
EAR PULL MACHINE OPERATOR CLOSING NOTES PATIENT REMAINS ON ALERT ORIENTED X3 VERBALLY RESPONSIVE, ABLE TO MAKE NEEDS KNOWN. ON SOFT DIET. NOT IN ACUTE DISTRESS NOTED, ON OXYGEN 2L/MIN VIA NASAL CANNULA, O2:98% IV SITE IS ON LEFT FOREARM AND RIGHT UPPER ARM INTACT PATENT IV HYDRATION D5 1/2NS RUNNING 75CC/HR ALSO OCTREOTIDE 50 MCG/KG/MIN 10ML/HR,KEPT CLEAN AND DRY ALL THE TIME, SAFETY PRECAUTION OBSERVED AT ALL TIMES. WILL ENDORSE TO NEXT SHIFT
--- NOTE | 2020-06-09 19:46 | NUR ---
ECONOMETRICS PROFESSOR OPENING NOTES PATIENT AWAKE IN BED. A/OX3. ON 2L NC; NO C/O SOB; BREATHING IS EVEN AND UNLABORED. PATIENT DENIES ANY PAIN AT THIS TIME. TELE MONITOR READING NSR, HEART RATE 80. IV PRESENT ON LEFT WRIST, SIZE 20, INTACT & PATENT WITH D5 1/2 NS RUNNING AT 75 ML/HR. SAFETY MEASURES IN PLACE AND PATIENT'S NEEDS MET. BED LOCKED, ALARM ON, SIDE RIALS X3, CALL LIGHT WITHIN REACH. WILL CONTINUE TO MONITOR.
[2020-06-09 23:13] LABS: BASOPHILS # (AUTO) 0.1 /CMM (0.0-0.2); BASOPHILS % (AUTO) 0.4 % (0.0-2.0); EOSINOPHILS % (AUTO) 2.5 % (0.0-6.0); HEMATOCRIT 21 % (39-51); LYMPHOCYTES # (AUTO) 1.4 /CMM (0.8-4.8); LYMPHOCYTES % (AUTO) 11.8 % (20.0-44.0); MEAN CORPUSCULAR HGB CONC 33 g/dl (31.0-36.0); MEAN CORPUSCULAR VOLUME 85 fL (80-96); MONOCYTES # (AUTO) 1.7 /CMM (0.1-1.30); MONOCYTES % (AUTO) 14.2 % (2.0-12.0); NEUTROPHILS # (AUTO) 8.7 /CMM (1.8-8.9); NEUTROPHILS % (AUTO) 71.1 % (43.0-81.0); PLATELET COUNT (AUTO) 176 /CMM (150-450); RED BLOOD CELL COUNT(AUTO) 2.52 MIL/uL (4.5-6.0); WHITE BLOOD COUNT (AUTO) 12.3 K/uL (4.3-11.0)
[2020-06-10] VITALS: BP 105/54
[2020-06-10] MEDS: IV D5/0.45 NACL 1,000 ML IV PRN (03:11)
[2020-06-10 04:15] VITALS: BP 100/53
[2020-06-10 06:23] LABS: BASOPHILS # (AUTO) 0.1 /CMM (0.0-0.2); BASOPHILS % (AUTO) 0.5 % (0.0-2.0); EOSINOPHILS % (AUTO) 2.3 % (0.0-6.0); HEMATOCRIT 22 % (39-51); LYMPHOCYTES % (AUTO) 9.3 % (20.0-44.0); MEAN CORPUSCULAR HGB CONC 32 g/dl (31.0-36.0); MEAN CORPUSCULAR VOLUME 87 fL (80-96); MONOCYTES # (AUTO) 1.4 /CMM (0.1-1.30); MONOCYTES % (AUTO) 12.8 % (2.0-12.0); NEUTROPHILS # (AUTO) 8.4 /CMM (1.8-8.9); NEUTROPHILS % (AUTO) 75.1 % (43.0-81.0); PLATELET COUNT (AUTO) 181 /CMM (150-450); RED BLOOD CELL COUNT(AUTO) 2.55 MIL/uL (4.5-6.0); WHITE BLOOD COUNT (AUTO) 11.2 K/uL (4.3-11.0)
[2020-06-10] MEDS: BLOOD SUGAR DIAGNOSTIC 1 EACH STRIP VI SCH ×4 (06:23→21:46)
[2020-06-10] MEDS: INSULIN REGULAR, HUMAN 100 UNIT/ML 3 ML VIAL SQ PRN ×3 (06:25→17:22)
--- NOTE | 2020-06-10 06:34 | NUR ---
QUALITY TECH CLOSING NOTES PATIENT AWAKE IN BED. A/OX3. ON 2L NC; NO C/O SOB; BREATHING IS EVEN AND UNLABORED. NO C/O PAIN. TELE MONITOR READING NSR, HEART RATE 91. IV PRESENT ON LEFT WRIST, SIZE 20, INTACT & PATENT WITH D5 1/2 NS RUNNING AT 75 ML/HR. SAFETY MEASURES IN PLACE AND PATIENT'S NEEDS MET. BED LOCKED, ALARM ON, SIDE RIALS X3, CALL LIGHT WITHIN REACH. WILL ENDORSE TO DAY SHIFT RN PLAN OF CARE.
[2020-06-10 07:33] LABS: ALANINE AMINOTRANSFERASE 18 U/L (12-78); ALBUMIN 2.3 g/dL (3.4-5.0); ALKALINE PHOSPHATASE 59 U/L (46-116); ASPARTATE AMINOTRANSFERASE 41 U/L (15-37); BILIRUBIN,TOTAL 0.7 mg/dL (0.2-1.0); CALCIUM, SERUM 7.6 mg/dL (8.5-10.1); CARBON DIOXIDE 21 mmol/L (21-32); CHLORIDE 110 mmol/L (98-107); CREATININE 1.9 mg/dL (0.6-1.3); GLUCOSE 157 mg/dL (74-106); MAGNESIUM 2.2 mg/dL (1.8-2.4); PHOSPHORUS 2.5 mg/dL (2.5-4.9); POTASSIUM 3.9 mmol/L (3.5-5.1); SODIUM SERUM 138 mmol/L (136-145); TOTAL PROTEIN, SERUM 5.1 g/dL (6.4-8.2); UREA NITROGEN, BLOOD 48 mg/dL (7-18)
--- NOTE | 2020-06-10 07:36 | NUR ---
RN NOTES PATIENT IN BED RESTING. PATIENT ALERT, ORIENTED X3. NO SOB OR ACUTE DISTRESS NOTED. PERIPHERAL IV INTACT PATENT. SAFETY MEASURES IN PLACE. WILL CONTINUE TO MONITOR.
[2020-06-10 08:00] VITALS: BP 137/67
[2020-06-10] MEDS ORDERED: MAGNESIUM OXIDE 400 MG TABLET PO ONE (08:00)
[2020-06-10] MEDS: PANTOPRAZOLE 40 MG VIAL IV SCH ×2 (08:04→17:20)
[2020-06-10 12:00] VITALS: BP 110/57
[2020-06-10] MEDS: SOD FERRIC GLUC 125 MG in IV NS 0.9% 100 ML IV SCH (14:26)
[2020-06-10 16:00] VITALS: BP 128/65
--- NOTE | 2020-06-10 18:50 | NUR ---
MS RN NOTES PATIENT IN BED RESTING NO SOB OR ACUTE DISTRESS NOTED. NO ACUTE CHANGES NOTED DURING SHIFT. ALL DUE MEDICATIONS ADMINISTERED. ALL NEEDS MET. WILL ENDORSE CARE TO PM SHIFT.
--- NOTE | 2020-06-10 19:08 | NUR ---
RN OPENING NOTES PATIENT AWAKE AND ALERT IN BED IN HIGH LANGE'S POSITION. ALERT AND ORIENTED X 3. ON 2 L OF O2 VIA NC AND WITHOUT SIGNS OF RESPIRATORY DISTRESS. PATIENT DENIES PAIN OR DISCOMFORT. IV INTACT AND FLUSHING WELL. CALL LIGHT WITHIN REACH, SAFETY MEASURES IN PLACE, BED ALARM ON, WILL MONITOR PATIENT.
[2020-06-10 20:00] VITALS: BP 105/61
[2020-06-10] MEDS: *INSULIN REGULAR(HUMULIN R)HUM 100 UNIT/ML VIAL SQ PRN (21:49)
[2020-06-11] VITALS (10 sets, daily range): BP systolic 97–132; BP diastolic 50–70
--- NOTE | 2020-06-11 02:19 | NUR ---
RN NOTE BED BATH, AM CARE, COMPLETE LINEN CHANGE COMPLETED. PT TOLERATED WELL.
[2020-06-11 06:24] LABS: LYMPHOCYTES # (AUTO) 1.2 /CMM (0.8-4.8); WHITE BLOOD COUNT (AUTO) 8.6 K/uL (4.3-11.0)
[2020-06-11 06:49] LABS: BASOPHILS % (AUTO) 0.4 % (0.0-2.0); EOSINOPHILS % (AUTO) 2.9 % (0.0-6.0); LYMPHOCYTES % (AUTO) 13.4 % (20.0-44.0); MEAN CORPUSCULAR HGB CONC 33 g/dl (31.0-36.0); MEAN CORPUSCULAR VOLUME 87 fL (80-96); MONOCYTES # (AUTO) 1.3 /CMM (0.1-1.30); MONOCYTES % (AUTO) 15.6 % (2.0-12.0); NEUTROPHILS # (AUTO) 5.8 /CMM (1.8-8.9); NEUTROPHILS % (AUTO) 67.7 % (43.0-81.0); PLATELET COUNT (AUTO) 171 /CMM (150-450); RED BLOOD CELL COUNT(AUTO) 2.31 MIL/uL (4.5-6.0)
--- NOTE | 2020-06-11 06:49 | NUR ---
RN CLOSING NOTES NO ACUTE CHANGES OBSERVED OVERNIGHT. PT SLEEPING IN BED IN SUPINE POSITION. EASILY AROUSABLE. ON 2 LPM OF O2 VIA NC. NO SIGNS OF RESPIRATORY DISTRESS. NO S/SX OF PAIN OR DISCOMFORT. IV INTACT AND FLUSHING WELL WITHOUT SIGNS OF COMPLICATIONS AT SITE. CALL LIGHT WITHIN REACH, BED LOCKED AND IN LOWEST POSITION, BED ALARM ON, ALL NEEDS MET AND ATTENDED TO, WILL ENDORSE TO MORNING RN FOR CONTINUATION OF CARE.
[2020-06-11 06:50] LABS: HEMATOCRIT 20 % (39-51)
[2020-06-11 06:52] LABS: HEMOGLOBIN 6.6 g/dL (13.5-17.5)
[2020-06-11 06:58] LABS: CALCIUM, SERUM 7.5 mg/dL (8.5-10.1); CARBON DIOXIDE 19 mmol/L (21-32); CHLORIDE 110 mmol/L (98-107); CREATININE 1.9 mg/dL (0.6-1.3); GLUCOSE 158 mg/dL (74-106); POTASSIUM 3.9 mmol/L (3.5-5.1); SODIUM SERUM 140 mmol/L (136-145); UREA NITROGEN, BLOOD 40 mg/dL (7-18)
--- NOTE | 2020-06-11 07:02 | NUR ---
RN NOTE RECEIVED ALERT FOR HGB 6.6. PAGED [employer].
--- NOTE | 2020-06-11 07:30 | NUR ---
PSYCHOLOGICAL ANTHROPOLOGIST NOTES PATIENT RECEIVED AWAKE AND ALERT IN BED IN HIGH LANGE'S POSITION. NOT IN ANY ACUTE DISTRESS. ALERT AND ORIENTED X 3. ON 2 L OF O2 VIA NC AND WITHOUT SIGNS OF RESPIRATORY DISTRESS. PATIENT DENIES PAIN OR DISCOMFORT. IV INTACT AND FLUSHING WELL. CALL LIGHT WITHIN REACH, SAFETY MEASURES IN PLACE, BED ALARM ON, WILL CONTINUE TO MONITOR.
--- NOTE | 2020-06-11 07:31 | NUR ---
RN NOTE SPOKE TO LIZA STAFFORD WITH ORDER TO TRANSFUSE 1 UNIT OF PRBC. ORDER NOTED AND CARRIED OUT.
[2020-06-11] MEDS: BLOOD SUGAR DIAGNOSTIC 1 EACH STRIP VI SCH ×3 (08:05→17:35)
[2020-06-11] MEDS: INSULIN REGULAR, HUMAN 100 UNIT/ML 3 ML VIAL SQ PRN ×2 (08:14→12:31)
[2020-06-11 09:50] LABS: LYMPHOCYTES % (MANUAL) 13 % (16-48); MONOCYTES % (MANUAL) 12 % (0-11.0); NEUTROPHILS % (MANUAL) 75 (42-76)
[2020-06-11] MEDS: PANTOPRAZOLE 40 MG VIAL IV SCH (09:51)
[2020-06-11 15:42] LABS: HEMOGLOBIN 8.5 g/dL (13.5-17.5)
[2020-06-11] MEDS: SOD FERRIC GLUC 125 MG in IV NS 0.9% 100 ML IV SCH (15:49)
--- NOTE | 2020-06-11 17:30 | NUR ---
ADULT DAYCARE COORDINATOR NOTES PT ALERT ORIENTED X4. NOT IN ANY ACUTE DISTRESS. EXIT CARE PROVIDED. ALL BELONGINGS PROVIDED. DISCHARGED HOME, AND PICKED UP BY SON, ALYSIA HENDERSON. ACCOMPANIED TO THE LOBBY VIA WHEELCHAIR. LEFT THE FACILITY IN STABLE CONDITION.
[2020-06-12] MEDS ORDERED: PANT40TA2 PO (13:17)
== END 2020-06-11 17:00 | disposition home or self-care (01) | DRG 377 ==
LOC: ER 06:20 → ICU 09:56 → TELE1 06-09 16:06 → MEDSG1 06-10 07:22
PROVIDERS: ADMIT Internal Medicine; ATTEND Nurse Practitioner Acute Care
PROC: 0DB68ZX Excision of Stomach, Via Natural or Artificial Opening Endoscopic, Diagnostic (ICD-10-PCS; principal; 2020-06-08)
PROC: 30233N1 Transfusion of Nonautologous Red Blood Cells into Peripheral Vein, Percutaneous Approach (ICD-10-PCS; 2020-06-11)
DX: K29.71 Gastritis, unspecified, with bleeding (principal); N17.0 Acute kidney failure with tubular necrosis; D62 Acute posthemorrhagic anemia; E44.0 Moderate protein-calorie malnutrition; D68.59 Other primary thrombophilia; K25.9 Gastric ulcer, unspecified as acute or chronic, without hemorrhage or perforation; Z85.828 Personal history of other malignant neoplasm of skin; Z79.82 Long term (current) use of aspirin; Z79.84 Long term (current) use of oral hypoglycemic drugs; Z79.899 Other long term (current) drug therapy; E11.22 Type 2 diabetes mellitus with diabetic chronic kidney disease; I12.9 Hypertensive chronic kidney disease with stage 1 through stage 4 chronic kidney disease, or unspecified chronic kidney disease; N18.9 Chronic kidney disease, unspecified; N13.9 Obstructive and reflux uropathy, unspecified; K29.80 Duodenitis without bleeding; E66.9 Obesity, unspecified; Z68.26 Body mass index [BMI] 26.0-26.9, adult; Z74.09 Other reduced mobility
CPT/HCPCS: 36415; 71045-TC; 80048-TC; 80053-TC; 80061-TC; 80076-TC; 81000-TC; 82728-TC; 82962-TC; 83540-TC; 83690-TC; 83735-TC; 84100-TC; 84439-TC; 84443-TC; 84484-TC; 85025-TC; 85027-TC; 85730-TC; 86850-TC; 87081-TC; 88305-TC; 88313-TC; 88342; 93307-TC; 94799-TC; C9113; C9803-CS; G0378; J1815; J2354; J2405; J2704; J2916; J3490; J7030; J7040; J7050; P9016-BL